=== PATIENT | female | born 1930 ===

== ENCOUNTER 2017-04-17 17:09 | Emergency (ER) | payer MEDICARE ==
--- NOTE | ~2017-04-17 | ER ---
PATIENT'S NAME: BRIDGER CALVO [facility] AGE: 86 Y [address] ROOM: [place] [id number] LOCATION: [facility] ADMIT DATE: 04/17/2017 ER/Outpatient Report DISCHARGE DATE: 04/17/2017 FAMILY PHYSICIAN: Dayana Singer MD ATTENDING PHYSICIAN: Checo Major Time of Arrival: 1710 hours. Time of Exam: 1710 hours. CHIEF COMPLAINT: Fall and rib pain. HISTORY OF PRESENT ILLNESS: The patient states around 3 p.m. today she was lying down taking a nap with a blanket on her. The phone rang, she got up to go get the phone, she got caught up in the blanket and fell on the floor. Denied hitting any of the furniture as she fell. States initially she had pain on the right rib area, but now it has moved to the left side. The pain is primarily when she goes to take a deep breath in. She has not had a cough, had not felt ill prior to this episode. Has not felt feverish. Denies having any chest pain, just pain with inspiration. ALLERGIES: NO KNOWN ALLERGIES. CURRENT MEDICATIONS: On her chart and reviewed by me. PAST MEDICAL HISTORY: Insulin-dependent diabetic, hypertension, and hepatitis C. 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 SOCIAL HISTORY: She denies use of tobacco, drugs, or alcohol. Lives at [facility]. REVIEW OF SYSTEMS: All negative other than those mentioned in the HPI. PHYSICAL EXAMINATION: VITAL SIGNS: She weighed 72.5 kg. Blood pressure initially was 201/91, pulse 77, respirations 20, temperature of 97.5, and O2 saturation was 98% on room air. PATIENT'S NAME: BRIDGER CALVO [facility] AGE: 86 Y [address] ROOM: [place], [place] [address] LOCATION: [facility] ADMIT DATE: 04/17/2017 ER/Outpatient Report DISCHARGE DATE: 04/17/2017 FAMILY PHYSICIAN: Dayana Singer MD ATTENDING PHYSICIAN: Checo Major GENERAL: She is awake, alert, and oriented x4. SKIN: [place], warm, and dry. RESPIRATIONS: Even and nonlabored. Lung sounds are clear throughout. HEART: Regular rate and rhythm. She is tender on the left lateral rib area when she takes a deep breath. She states she took 2 Tylenol prior to arrival, and that has helped decrease the pain. DIAGNOSTIC DATA: X-ray was completed, reviewed with Dr. Smith, no bony abnormality is seen. IMPRESSION: Rib pain. PLAN: Home. Rest. Continue the Tylenol for discomfort. Ice to the chest area. Follow up with her primary provider in 2-3 days if symptoms persist or worsen. She verbalized understanding. Her son was with her and he also understood the plan of care. KAEL PORTILLO APRN FOR MD [facility] MCKEON/coretta /[id number] d: 04/18/17 0117 t: 05/01/17 0700, OUTPATIENT REPORT
== END 2017-04-17 18:28 | disposition disaster alternative care site (69) ==
LOC: GACC 17:09
DX: R07.81 Pleurodynia (principal); I10 Essential (primary) hypertension; E11.9 Type 2 diabetes mellitus without complications; B19.20 Unspecified viral hepatitis C without hepatic coma; Z95.1 Presence of aortocoronary bypass graft; Z79.899 Other long term (current) drug therapy; Z79.4 Long term (current) use of insulin